=== PATIENT | female | born 2000 | race Caucasian/White ===

== ENCOUNTER 2021-08-09 09:07 | Emergency (ER) | payer BC, OTHER ==
[~2021-08-09] VITALS: Ht 157.5 cm; Wt 87.1 kg
--- NOTE | 2021-08-09 09:27 | ED Cough/URI ---
General Chief Complaint: COVID19 Suspect/Confirmed Stated Complaint: COUGH/SORE THROAT HEADACHE Source: patient Exam Limitations: no limitations History of Present Illness Date Seen by Provider: Aug 09, 2021 Time Seen by Provider: 09:10 Initial Comments Patient to the ER by private conveyance with chief complaint of being sick. She says since yesterday she has had nausea with 3 episodes of vomiting. She has had a cough with some blood-streaked sputum. Malaise fatigue headache sore throat runny nose congestion and hearing decrease. Patient did not receive COVID-19 vaccination nor has she had a influenza vaccine this year. She is on Nexplanon. She has a history of seizures on 2 different antiepileptics and states that she has been taking them. History of tonsillectomy. Allergies and Home Medications Allergies Coded Allergies: No Known Drug Allergies (Unverified , 08/09/21) Patient Home Medication List Home Medication List Reviewed: Yes Review of Systems Review of Systems Constitutional: chills; No diaphoresis, No fever; malaise EENTM: No ear discharge, No ear pain Respiratory: cough, phlegm, short of breath; No wheezing Cardiovascular: No chest pain, No edema, No palpitations Gastrointestinal: No abdominal pain; nausea, vomiting Genitourinary: No discharge, No dysuria Musculoskeletal: No back pain, No joint pain Psychiatric/Neurological: Denies Headache, Denies Numbness All Other Systems Reviewed Negative Unless Noted: Yes Past Yywlppi-Cweqcv-Tclmdx Hx Patient Social History Tobacco Use?: Yes Tobacco type used: Cigarettes Smoking Status: Light Tobacco Smoker Smokeless Tobacco Frequency: Never a User Use of E-Cig and/or Vaping dev: Yes E-Cig or Vaping type used: Nicotine Use of E-Cig and/or Vaping Kev: Current Everyday User Substance use?: Yes Substance type: Marijuana Substance frequency: Daily Alcohol Use?: Yes Alcohol Frequency: Rarely Pt feels they are or have been: No Physical Exam Vital Signs - First Documented Capillary Refill : Height: '" Weight: lbs. oz. kg; BMI Method: General Appearance: WD/WN, mild distress Eyes: Bilateral Eye Normal Inspection, Bilateral Eye PERRL, Bilateral Eye EOMI HEENT: PERRL/EOMI, TMs normal (Clear, landmarks retained, no evidence of bulging or retraction), pharyngeal erythema; No tonsillar exudate; other (Nasal congestion with erythematous appearance and clear rhinorrhea) Neck: full range of motion, supple, normal inspection, lymphadenopathy (R) (Reactive lymphadenopathy anterior cervical chain), lymphadenopathy (L) (Reactive lymphadenopathy anterior cervical lymphatic chain with a prominent 2 cm lymph node) Respiratory: lungs clear, normal breath sounds, no respiratory distress (Oxygen saturation 98 200% on room air nonlabored breathing), no accessory muscle use Cardiovascular: normal peripheral pulses, regular rate, rhythm Extremities: normal range of motion, non-tender, normal capillary refill Neurologic/Psychiatric: alert, normal mood/affect, oriented x 3 Skin: normal color, warm/dry Progress/Results/Core Measures Suspected Sepsis SIRS Temperature: Pulse: Respiratory Rate: Blood Pressure / Mean: Results/Orders Lab Results Laboratory Tests Test 08/09/21 09:20 Range/Units Influenza Type A (RT-PCR) Not Detected Not Detecte Influenza Type B (RT-PCR) Not Detected Not Detecte SARS-CoV-2 RNA (RT-PCR) Detected H Not Detecte Group A Streptococcus Screen NEGATIVE NEGATIVE My Orders Orders - CLEMENT FLORES Covid 19 Inhouse Test (08/09/21 09:22) Influenza A And B By Pcr (08/09/21 09:22) Rapid Strep A Screen (08/09/21 09:22) Ondansetron Oral Dissolve Tab (Zofran (08/09/21 09:30) Medications Given in ED Current Medications Medications Dose Ordered Sig/Kimmy Route Start Time Stop Time Status Last Admin Dose Admin Ondansetron HCl 4 mg ONCE ONCE PO 08/09/21 09:30 08/09/21 09:31 DC 08/09/21 09:32 4 MG Vital Signs/I&O 08/09/21 08/09/21 09:14 09:14 Temp 36.3 Pulse 102 Resp 17 B/P (MAP) 125/82 (96) O2 Delivery Room Air Room Air Capillary Refill : Progress Note #1: Time: 09:34 Progress Note Upper respiratory tract infection with likely gastroenteritis, most likely a virus. COVID-19, influenza swabs and a rapid strep. She has not coughed since she arrived. She has unremarkable respiratory/pulmonary exam. Zofran 4 mg ODT. Progress Note #2: Time: 10:09 Progress Note We did discuss the benefits risks and alternatives to monoclonal antibody infusion and she seems to have a very low benefit available to her given her age and otherwise health and presentation. We will provide her with some Sherrieon Facundo, Jd and a note for work. She has declined multiple antibiotics at this time. Return precautions were given. Thermometer was provided Departure Impression Primary Impression: COVID-Ramiro Disposition: 01 HOME, SELF-CARE Condition: Stable Departure-Patient Inst. Decision time for Depature: 10:03 Patient Instructions: COVID-19 (DC), REGEN-COV (casirivimab and imdevimab) FDA Fact Sheet Add. Discharge Instructions: Drink lots of fluids. Tylenol 1000 mg every 8 hours for headache, body aches or fever. Ibuprofen 800 mg every 8 hours as necessary for headache, body aches or fever. Vapor rubs such as Vicks or Mentholatum can be helpful for congestion. Humidifiers will help you breathe easier. Get plenty of rest. Tessalon Perles 1 capsule every 6 hours as necessary for coughing fits. You may be off isolation 08/18/2021 if the last 24 hours you were fever free. All discharge instructions reviewed with patient and/or family. Voiced understanding. Scripts Ondansetron (Ondansetron Odt) 4 Mg Tab.rapdis 4 MG PO Q6H PRN for NAUSEA/VOMITING, #12 TAB 0 Refills Prov: CLEMENT FLORES 08/09/21 Benzonatate (TESSALON PERLES) 100 Mg Capsule 100 MG PO Q6H PRN for COUGH, #20 CAP 0 Refills Prov: CLEMENT FLORES 08/09/21 Work/School Note: Work Release Form Date Seen in the Emergency Department: Aug 09, 2021 Return to Work: Aug 18, 2021 Restrictions: Return-No Fever (24hrs) Other Restrictions Listed Below: Off isolation after if at least 24 hours fever free. CLEMENT FLORES Aug 09, 2021 09:27
[2021-08-09] MEDS ORDERED: ONDANSETRON 4 MG (ZOFRAN) ORAL DISSOLVE TAB PO ONE (09:30)
[2021-08-09] MEDS ORDERED: ONDA4TAB11 PO (10:12)
[2021-08-09] MEDS ORDERED: BENZ100C18 PO (10:12)
[2021-08-09 10:20] VITALS: BP 122/71
== END 2021-08-09 10:20 | disposition home or self-care (01) ==
LOC: ER 09:11
DX: U07.1 COVID-19 (principal); F17.210 Nicotine dependence, cigarettes, uncomplicated
CPT/HCPCS: 87430; 87636; 99283